=== PATIENT | male | born 1990 | race Two or more races ===

== ENCOUNTER → 2017-12-09 | Emergency (ER) | payer OTHER ==
[~2017-12-09] VITALS: Ht 177.8 cm; Wt 145.6 kg
[~2017-12-09] MED LIST: IV NS 0.9% 1,000 ML BAG IV ONE
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
[2017-12-09 14:43] LABS: CALCIUM, SERUM 8.8 mg/dL (8.5-10.1); CREATININE 0.9 mg/dL (0.6-1.3); POTASSIUM 3.9 mmol/L (3.5-5.1)
[2017-12-09 14:58] VITALS: BP 119/63
== END | disposition home or self-care (01) ==
LOC: ER 14:02
DX: R68.2 Dry mouth, unspecified (principal); I10 Essential (primary) hypertension; R45.86 Emotional lability
CPT/HCPCS: 36415; 80048; 99284; A4606; J7030; Z7610

== ENCOUNTER 2019-03-15 04:49 | Emergency (ER) | payer OTHER ==
[~2019-03-15] VITALS: Ht 167.6 cm; Wt 151.0 kg
[2019-03-15] MEDS ORDERED: IV NS 0.9% 1,000 ML IV PRN ×2 (05:30)
[2019-03-15] MEDS ORDERED: ONDANSETRON HCL/PF 4 MG/2 ML VIAL IV ONE (05:30)
[2019-03-15] MEDS ORDERED: ONDANSETRON HCL/PF 4 MG/2 ML VIAL ONE (05:30)
--- NOTE | 2019-03-15 05:33 | NUR ---
PATIENT CAME INTO ER BED 1 WITH C/O "I HAVE BEEN SHITTING MYSELF FOR 2 DAYS". PATIENT STATES THAT HE HAD BAD THAI FOOD AND HAS HAD WATERY DIARRHEA EVERSINCE. DID NOT TRAVEL OUT OF COUNTRY RECENTLY. PATIENT NOTES BLOOD IN STOOL. AAOX4. NO SOB. BREATHING EVENLY AND UNLABORED. WILL CONTINUE TO MONITOR ACCORDINGLY.
[2019-03-15 05:49] LABS: CALCIUM, SERUM 9.3 mg/dL (8.5-10.1); CREATININE 1.1 mg/dL (0.6-1.3); POTASSIUM 3.9 mmol/L (3.5-5.1)
[2019-03-15] MEDS ORDERED: KETOROLAC TROMETHAMINE 15 MG/ML VIAL ONE (05:54)
[2019-03-15] MEDS ORDERED: KETOROLAC TROMETHAMINE INJ 30 MG/ML VIAL IV ONE (06:00)
--- NOTE | 2019-03-15 06:56 | NUR ---
IV removed. Catheter intact and site benign. Pressure and 4x4 applied to site. No bleeding noted. Patient discharged to home in stable condition. Written and verbal after care instructions given. Patient verbalizes understanding of instruction. Prescriptions given and explained to patient.
[2019-03-15 06:57] VITALS: BP 129/77
== END 2019-03-15 06:57 | disposition home or self-care (01) ==
LOC: ER 04:52
DX: K52.9 Noninfective gastroenteritis and colitis, unspecified (principal); I10 Essential (primary) hypertension; E11.9 Type 2 diabetes mellitus without complications
CPT/HCPCS: 36415; 80048; 96361; 96374; 96375; 99283; J1885; J2405; J7030

== ENCOUNTER 2019-06-18 11:30 | Emergency (ER) | payer OTHER ==
[~2019-06-18] VITALS: Ht 177.8 cm; Wt 145.1 kg
[2019-06-18 11:43] VITALS: BP 150/77
--- NOTE | 2019-06-18 12:12 | NUR ---
Patient awake alert non distres noted able to ambulated urine obtined and send to lab
[2019-06-18 12:15] LABS: APPEARANCE,URINE Clear (CLEAR); BILIRUBIN,URINE Negative (NEGATIVE); BLOOD, URINE Trace-intact Ery/uL (NEGATIVE); COLOR,URINE Yellow (YELLOW); KETONES,URINE Negative (NEGATIVE); LEUKOCYTE ESTERASE ,URINE Trace (NEGATIVE); NITRITE, URINE Negative (NEGATIVE); PROTEIN,URINE Trace mg/dl (NEGATIVE); UGLUCOSE Negative (NEGATIVE); UROBILINOGEN,URINE 0.2 EU/dL (0.2)
[2019-06-18 12:21] LABS: BACTERIA,URINE Rare /HPF (None Seen); SQUAMOUS EPITHELIAL CELL,UR Rare /HPF (None Seen); WBC,URINE 0-2 /HPF (0-3)
--- NOTE | 2019-06-18 13:01 | NUR ---
Patient discharged to home in stable condition. Written and verbal after care instructions given. Patient verbalizes understanding of instruction.
== END 2019-06-18 13:03 | disposition home or self-care (01) ==
LOC: ER 11:30
DX: R31.29 Other microscopic hematuria (principal); I10 Essential (primary) hypertension; F17.200 Nicotine dependence, unspecified, uncomplicated
CPT/HCPCS: 81000-TC; 87086-TC

== ENCOUNTER 2019-09-25 23:10 | Emergency (ER) | payer OTHER ==
[~2019-09-25] VITALS: Ht 177.8 cm; Wt 157.4 kg
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
--- NOTE | 2019-09-25 23:27 | NUR ---
LAB AT BEDSIDE FOR BLOOD DRAW
[2019-09-25 23:31] LABS: BASOPHILS # (AUTO) 0.1 /CMM (0.0-0.2); BASOPHILS % (AUTO) 0.6 % (0.0-2.0); EOSINOPHILS % (AUTO) 2.7 % (0.0-6.0); HEMATOCRIT 40 % (39-51); HEMOGLOBIN 12.8 g/dL (13.5-17.5); LYMPHOCYTES # (AUTO) 3.1 /CMM (0.8-4.8); LYMPHOCYTES % (AUTO) 21.8 % (20.0-44.0); MEAN CORPUSCULAR HGB CONC 32 g/dl (31.0-36.0); MEAN CORPUSCULAR VOLUME 82 fL (80-96); MONOCYTES # (AUTO) 1.3 /CMM (0.1-1.30); MONOCYTES % (AUTO) 9.1 % (2.0-12.0); NEUTROPHILS # (AUTO) 9.3 /CMM (1.8-8.9); NEUTROPHILS % (AUTO) 65.8 % (43.0-81.0); PLATELET COUNT (AUTO) 294 /CMM (150-450); RED BLOOD CELL COUNT(AUTO) 4.92 MIL/uL (4.5-6.0); WHITE BLOOD COUNT (AUTO) 14.1 K/uL (4.3-11.0)
--- NOTE | 2019-09-25 23:35 | NUR ---
[employer] LEFT, SITTER WITHIN LINE OF SIGHT.
[2019-09-25 23:39] LABS: CALCIUM, SERUM 9.2 mg/dL (8.5-10.1); CARBON DIOXIDE 33 mmol/L (21-32); CHLORIDE 103 mmol/L (98-107); GLUCOSE 94 mg/dL (74-106); POTASSIUM 4.3 mmol/L (3.5-5.1); SODIUM SERUM 139 mmol/L (136-145); UREA NITROGEN, BLOOD 18 mg/dL (7-18)
[2019-09-25 23:44] LABS: ALANINE AMINOTRANSFERASE 21 U/L (12-78); ALBUMIN 3.4 g/dL (3.4-5.0); ALKALINE PHOSPHATASE 104 U/L (46-116); ASPARTATE AMINOTRANSFERASE 14 U/L (15-37); BILIRUBIN,TOTAL 0.2 mg/dL (0.2-1.0)
[2019-09-25 23:45] LABS: ACETAMINOPHEN < 2 ug/ml (10-30); ALCOHOL, BLOOD < 3 mg/dL (0-0); SALICYLATE 2.4 mg/dL (2.8-20.0)
--- NOTE | 2019-09-26 00:08 | NUR ---
URINE COLLECTED. SENT TO LAB
[2019-09-26 00:13] LABS: APPEARANCE,URINE Clear (CLEAR); BILIRUBIN,URINE Negative (NEGATIVE); BLOOD, URINE Trace-intact Ery/uL (NEGATIVE); COLOR,URINE Yellow (YELLOW); KETONES,URINE Negative (NEGATIVE); LEUKOCYTE ESTERASE ,URINE Negative (NEGATIVE); NITRITE, URINE Negative (NEGATIVE); PH,URINE 6.5 (5.0-8.0); PROTEIN,URINE Negative (NEGATIVE); UGLUCOSE Negative (NEGATIVE); UROBILINOGEN,URINE 0.2 EU/dL (0.2)
[2019-09-26 00:24] LABS: BACTERIA,URINE None seen /HPF (None Seen); SQUAMOUS EPITHELIAL CELL,UR Few /HPF (None Seen); WBC,URINE NONE SEEN /HPF (0-3)
--- NOTE | 2019-09-26 00:59 | NUR ---
PT STATES " I DONT WANT TO KILL MYSELF, I WAS JUST FRUSTRATED THAT I COULD NOT FINISH WHILE WATCHING PORN, I DONT PLAN ON OVERDOSING ON MEDICATION"
--- NOTE | 2019-09-26 05:25 | NUR ---
pt cleared for discharge per dr. lyman. Patient discharged to home in stable condition. Written and verbal after care instructions given. Patient verbalizes understanding of instruction. pt ambulatory with a steady gait
[2019-09-26 05:41] VITALS: BP 128/78
== END 2019-09-26 05:25 | disposition home or self-care (01) ==
LOC: ER 23:13
DX: R45.851 Suicidal ideations (principal); I10 Essential (primary) hypertension; F17.200 Nicotine dependence, unspecified, uncomplicated
CPT/HCPCS: 36415; 80048; 80076; 80305; 80307; 80329; 81001; 85025; 99285; G0480; 81000-TC

== ENCOUNTER 2019-10-08 16:44 | Emergency (ER) | payer OTHER ==
[~2019-10-08] VITALS: Ht 172.7 cm; Wt 113.4 kg
[2019-10-08 16:56] VITALS: BP 162/98
--- NOTE | 2019-10-08 17:15 | NUR ---
refused to remain in his bed, saying "i'm going home" and proceeded to walk towards the door.
== END 2019-10-08 17:15 | disposition left against medical advice (07) ==
LOC: ER 16:47
DX: Z53.21 Procedure and treatment not carried out due to patient leaving prior to being seen by health care provider (principal)

== ENCOUNTER 2020-02-08 00:18 | Emergency (ER) | payer OTHER ==
[~2020-02-08] VITALS: Ht 172.7 cm; Wt 113.4 kg
--- NOTE | 2020-02-08 00:21 | NUR ---
PT AAOX4. BIBRA39 WITH SMART TEAM FROM HOME FOR SI "CUT THROAT, OD ON MEDs" PT PLACED IN BED 14 ON WAREHOUSE LEAD AND PULSE OX. PT PLACED IN GOWN, BELONIGNS PLACED IN LOCKER. SITTER AT BEDSIDE. PT ON 5150 FOR DTS. WILL CONTINUE TO MONITOR.
[2020-02-08 01:02] LABS: BASOPHILS # (AUTO) 0.1 /CMM (0.0-0.2); BASOPHILS % (AUTO) 0.7 % (0.0-2.0); EOSINOPHILS % (AUTO) 2.4 % (0.0-6.0); HEMATOCRIT 40 % (39-51); HEMOGLOBIN 12.5 g/dL (13.5-17.5); LYMPHOCYTES # (AUTO) 3.4 /CMM (0.8-4.8); LYMPHOCYTES % (AUTO) 25.4 % (20.0-44.0); MEAN CORPUSCULAR HGB CONC 31 g/dl (31.0-36.0); MEAN CORPUSCULAR VOLUME 84 fL (80-96); MONOCYTES # (AUTO) 1.4 /CMM (0.1-1.30); MONOCYTES % (AUTO) 10.7 % (2.0-12.0); NEUTROPHILS # (AUTO) 8.1 /CMM (1.8-8.9); NEUTROPHILS % (AUTO) 60.8 % (43.0-81.0); PLATELET COUNT (AUTO) 278 /CMM (150-450); RED BLOOD CELL COUNT(AUTO) 4.78 MIL/uL (4.5-6.0); WHITE BLOOD COUNT (AUTO) 13.4 K/uL (4.3-11.0)
[2020-02-08 01:19] LABS: BILIRUBIN,URINE SMALL (NEGATIVE); BLOOD, URINE Trace-intact Ery/uL (NEGATIVE); COLOR,URINE YELLOW (YELLOW); LEUKOCYTE ESTERASE ,URINE Negative (NEGATIVE); NITRITE, URINE Negative (NEGATIVE); PH,URINE 6.5 (5.0-8.0); PROTEIN,URINE 100 mg/dl (NEGATIVE); UGLUCOSE Negative (NEGATIVE)
[2020-02-08 01:49] LABS: CALCIUM, SERUM 9.2 mg/dL (8.5-10.1); CARBON DIOXIDE 30 mmol/L (21-32); CHLORIDE 101 mmol/L (98-107); CREATININE 0.8 mg/dL (0.6-1.3); GLUCOSE 98 mg/dL (74-106); POTASSIUM 4.7 mmol/L (3.5-5.1); SODIUM SERUM 140 mmol/L (136-145); UREA NITROGEN, BLOOD 13 mg/dL (7-18)
[2020-02-08 01:55] LABS: ACETAMINOPHEN 3 ug/ml (10-30); ALANINE AMINOTRANSFERASE 35 U/L (12-78); ALBUMIN 3.3 g/dL (3.4-5.0); ALCOHOL, BLOOD < 3 mg/dL (0-0); ALKALINE PHOSPHATASE 85 U/L (46-116); ASPARTATE AMINOTRANSFERASE 17 U/L (15-37); BILIRUBIN,DIRECT 0.1 mg/dL (0.0-0.2); BILIRUBIN,TOTAL 0.3 mg/dL (0.2-1.0); TOTAL PROTEIN, SERUM 7.7 g/dL (6.4-8.2)
[2020-02-08 02:14] LABS: BACTERIA,URINE 2+ /HPF (None Seen); SQUAMOUS EPITHELIAL CELL,UR Moderate /HPF (None Seen); WBC,URINE 81-100 /HPF (0-3)
[2020-02-08 02:15] LABS: MUCUS,URINE Many /LPF (None Seen); URINE AMORPHOUS URATE Many /HPF (None Seen)
--- NOTE | 2020-02-08 04:26 | NUR ---
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
--- NOTE | 2020-02-08 05:44 | NUR ---
Patient is resting comfortably in bed. Easily aroused. VSS.
--- NOTE | 2020-02-08 10:59 | NUR ---
[facility] [phone]
--- NOTE | 2020-02-08 11:17 | NUR ---
Patient is a 29 year-old male. Patient was placed on a 5150 hold by [employer] and [facility] SMART Team. Patient is alert and oriented x4. Patient was receptive to speaking with this SW. Patient made appropriate eye contact. Patients speech was clear, linear, and soft. Patient informed this SW that he said the wrong things and now wants to go home. Patient denied SI and HI. Denies auditory and visual hallucinations. Per 5150 hold, patient reported that he was having audiory hallucinations telling him to cut his throat and wrist with a knife and overdose on his psychiatric medications. 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 Duval, ED physician.
--- NOTE | 2020-02-08 11:23 | NUR ---
BRENDA spoke with Dr. Duval regarding patient currently denying SI, HI, auditory and visual hallucinations. SW discussed with Dr. Duval in calling [employer]nament[employer]worker to assess patient. Dr. Duval in agreement.
--- NOTE | 2020-02-08 11:24 | NUR ---
BRENDA called [employer], [facility] clinician infection control nurse. Per Samantha, on her way not ETA provided. SW remains available for all needs regarding this patient.
--- NOTE | 2020-02-08 14:22 | NUR ---
cleared by the PET TEAM: Plan Preliminary treatment plan Problem patient presents with frustration due to high blood pressure and high blood sugar. patient called [employer] falsely due to frustration and needing to get to the hospital faster. patient reports recent hospitalization at [facility] but reports no suicidal thoughts or behavior presently. patient denies any harm to self or plan present upon evaluation by clinician. Interventions patient will be discharge and the 5150 by [employer] broken. patient created a safety plan with clinican statign he will contact his psychiatrist Dr. Angelo Hooper and therapist Mayra of [facility]. patient also include in safety plan to listen to music and take walk when he gets frustrated next time. Goal To reduce frustration and use positive coping strategies. Referrals for treatment If not admitted patient is referred to his treating psychiatrist and therapist Dr. Angelo Hooper and Mayra of [facility]. Gerald GARCIAS 2019 [id number] 26 Page
--- NOTE | 2020-02-08 14:23 | NUR ---
cleared by the psych- see notes
--- NOTE | 2020-02-08 14:23 | NUR ---
dc with his mother- verbalized understanding of care.
[2020-02-08 14:24] VITALS: BP 135/78
== END 2020-02-08 14:25 | disposition home or self-care (01) ==
LOC: ER 00:19
DX: R45.851 Suicidal ideations (principal); I10 Essential (primary) hypertension; R07.9 Chest pain, unspecified; R05 Cough; Z20.828 Contact with and (suspected) exposure to other viral communicable diseases; F32.9 Major depressive disorder, single episode, unspecified
CPT/HCPCS: 36415; 71045; 80048; 80076; 80299; 80307; 80320; 81001; 85025; 87086; 87426; 93005; 99285; C9803; G0480; J7030

== ENCOUNTER 2020-02-13 01:28 | Emergency (ER) | payer OTHER ==
[~2020-02-13] VITALS: Ht 172.7 cm; Wt 113.4 kg
[2020-02-13 01:33] VITALS: BP 136/81
--- NOTE | 2020-02-13 02:28 | NUR ---
TECH AT BEDSIDE FOR EKG
[2020-02-13] MEDS ORDERED: LORAZEPAM 1 MG TABLET ONE (02:48)
--- NOTE | 2020-02-13 02:49 | NUR ---
Patient discharged to home in stable condition. Written and verbal after care instructions given. Patient verbalizes understanding of instruction.
[2020-02-13] MEDS ORDERED: LORAZEPAM 1 MG TABLET PO ONE (03:00)
== END 2020-02-13 05:11 | disposition home or self-care (01) ==
LOC: ER 01:33
DX: F41.9 Anxiety disorder, unspecified (principal); R07.89 Other chest pain; I10 Essential (primary) hypertension; F32.9 Major depressive disorder, single episode, unspecified; F17.200 Nicotine dependence, unspecified, uncomplicated

== ENCOUNTER 2020-06-30 01:01 | Emergency (ER) | payer OTHER ==
[~2020-06-30] VITALS: Ht 177.8 cm; Wt 165.6 kg
[2020-06-30] MEDS ORDERED: KETOROLAC TROMETHAMINE INJ 30 MG/ML VIAL ONE (01:38)
[2020-06-30] MEDS ORDERED: ONDANSETRON HCL/PF 4 MG/2 ML VIAL ONE (01:38)
[2020-06-30] MEDS: IV NS 0.9% 500 ML BAG IV ONE (01:44)
[2020-06-30] MEDS: KETOROLAC TROMETHAMINE INJ 30 MG/ML VIAL IV ONE (01:44)
[2020-06-30] MEDS: ONDANSETRON HCL/PF 4 MG/2 ML VIAL IVP ONE (01:44)
--- NOTE | 2020-06-30 01:46 | NUR ---
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 PATIENT STATES THAT HE HAS HX OF KIDNEY STONES AND RECURRING UTI. PATIENT IS AAOX4. NO SOB. BREATHING EVENLY AND UNLABORED ON ROOM AIR. PT'S URINE COLLECTED AND SENT TO THE LAB. CONNECTED TO THE MONITOR.
--- NOTE | 2020-06-30 01:46 | NUR ---
Cesar chaves in EDM - 06/30/20 at 0147 by BONIFACIO PT TO ER BED 11 C/O LEFT UPPER ABDOMINAL STINGING PAIN W/ UPPER PELVIC PAIN
[2020-06-30 01:51] LABS: BASOPHILS # (AUTO) 0.1 /CMM (0.0-0.2); BASOPHILS % (AUTO) 0.9 % (0.0-2.0); EOSINOPHILS % (AUTO) 4.9 % (0.0-6.0); HEMATOCRIT 37 % (39-51); HEMOGLOBIN 11.9 g/dL (13.5-17.5); LYMPHOCYTES # (AUTO) 3.6 /CMM (0.8-4.8); LYMPHOCYTES % (AUTO) 25.6 % (20.0-44.0); MEAN CORPUSCULAR HGB CONC 32 g/dl (31.0-36.0); MEAN CORPUSCULAR VOLUME 83 fL (80-96); MONOCYTES # (AUTO) 1.5 /CMM (0.1-1.30); MONOCYTES % (AUTO) 10.9 % (2.0-12.0); NEUTROPHILS # (AUTO) 8.1 /CMM (1.8-8.9); NEUTROPHILS % (AUTO) 57.7 % (43.0-81.0); PLATELET COUNT (AUTO) 277 /CMM (150-450); RED BLOOD CELL COUNT(AUTO) 4.46 MIL/uL (4.5-6.0); WHITE BLOOD COUNT (AUTO) 14.1 K/uL (4.3-11.0)
[2020-06-30 01:51] LABS: BILIRUBIN,URINE NEGATIVE (NEGATIVE); COLOR,URINE YELLOW (YELLOW); LEUKOCYTE ESTERASE ,URINE MODERATE (NEGATIVE); NITRITE, URINE NEGATIVE (NEGATIVE); PROTEIN,URINE 30 mg/dl (NEGATIVE); UGLUCOSE NEGATIVE (NEGATIVE); UROBILINOGEN,URINE 0.2 EU/dL (0.2)
[2020-06-30 01:57] LABS: BACTERIA,URINE Many /HPF (None Seen); SQUAMOUS EPITHELIAL CELL,UR Few /HPF (None Seen); WBC,URINE 51-80 /HPF (0-3)
[2020-06-30 02:01] LABS: CALCIUM, SERUM 8.2 mg/dL (8.5-10.1); CREATININE 0.9 mg/dL (0.6-1.3); POTASSIUM 3.9 mmol/L (3.5-5.1)
[2020-06-30] MEDS ORDERED: CIPROFLOXACIN HCL 500 MG TABLET ONE (02:47)
[2020-06-30] MEDS ORDERED: CIPR500T5 PO (02:48)
[2020-06-30] MEDS ORDERED: IBUP-1957 PO (02:48)
[2020-06-30] MEDS: CIPROFLOXACIN HCL 500 MG TABLET PO ONE (02:50)
[2020-06-30 02:58] VITALS: BP 128/79
--- NOTE | 2020-06-30 02:58 | NUR ---
IV removed. Catheter intact and site benign. Pressure and 4x4 applied to site. No bleeding noted.
--- NOTE | 2020-06-30 02:58 | NUR ---
Patient discharged to home in stable condition. Written and verbal after care instructions given. Patient verbalizes understanding of instruction.
== END 2020-06-30 02:58 | disposition home or self-care (01) ==
LOC: ER 01:01
DX: I88.0 Nonspecific mesenteric lymphadenitis (principal); N39.0 Urinary tract infection, site not specified; I10 Essential (primary) hypertension; F32.9 Major depressive disorder, single episode, unspecified; F17.200 Nicotine dependence, unspecified, uncomplicated; E66.01 Morbid (severe) obesity due to excess calories; Z68.43 Body mass index [BMI] 50.0-59.9, adult; Z79.899 Other long term (current) drug therapy; Z87.442 Personal history of urinary calculi
CPT/HCPCS: 36415; 74176; 80048; 81001; 85025; 87086; 96374; 96375; 99284; J1885; J2405

== ENCOUNTER 2020-08-26 01:48 | Emergency (ER) | payer OTHER ==
[~2020-08-26] VITALS: Ht 177.8 cm; Wt 165.6 kg
[~2020-08-26 01:48] MED LIST changes: +CIPR500T5 PO; +IBUP-1957 PO; -IV NS 0.9% 1,000 ML BAG IV ONE
[2020-08-26 01:50] VITALS: BP 134/67
[2020-08-26 02:22] LABS: BILIRUBIN,URINE MODERATE (NEGATIVE); COLOR,URINE RED (YELLOW); LEUKOCYTE ESTERASE ,URINE Negative (NEGATIVE); NITRITE, URINE Positive (NEGATIVE); PROTEIN,URINE >=300 mg/dl (NEGATIVE); UGLUCOSE Negative (NEGATIVE)
[2020-08-26 02:34] LABS: MUCUS,URINE Rare /LPF (None Seen); RBC,URINE 81-100 /HPF (0-2); SQUAMOUS EPITHELIAL CELL,UR None Seen /HPF (None Seen); WBC,URINE 0-2 /HPF (0-3)
[2020-08-26 02:35] LABS: BACTERIA,URINE Rare /HPF (None Seen)
[2020-08-26] MEDS ORDERED: CIPR500T5 PO (02:44)
[2020-08-26] MEDS ORDERED: CIPROFLOXACIN HCL 500 MG TABLET ONE (02:44)
[2020-08-26] MEDS: CIPROFLOXACIN HCL 500 MG TABLET PO ONE (02:45)
--- NOTE | 2020-08-26 02:50 | NUR ---
Patient discharged to home in stable condition. Written and verbal after care instructions given. Patient verbalizes understanding of instruction. Pt refuse to sign aci. pt requesting norco rx. er md made aware with no rx given.
== END 2020-08-26 03:20 | disposition home or self-care (01) ==
LOC: ER 01:52
DX: N39.0 Urinary tract infection, site not specified (principal); I10 Essential (primary) hypertension; F32.9 Major depressive disorder, single episode, unspecified; F17.200 Nicotine dependence, unspecified, uncomplicated
CPT/HCPCS: 81001; 87086-TC

== ENCOUNTER 2021-07-12 19:53 | Emergency (ER) | payer OTHER ==
[~2021-07-12] VITALS: Ht 177.8 cm; Wt 159.2 kg
--- NOTE | 2021-07-12 20:40 | NUR ---
BIBS C/O DIFFUSED STOMACH PAIN X4DAYS WITH DIARRHEA X3DAYS. PT A/OX4. TOLERATING R/A WELL WITH NO SOB. CONNECTED PT TO POX AND MONITOR.
[2021-07-12 20:41] LABS: BASOPHILS # (AUTO) 0.1 K/uL (0.0-0.2); BASOPHILS % (AUTO) 0.7 % (0.0-2.0); EOSINOPHILS % (AUTO) 2.2 % (0.0-6.0); HEMATOCRIT 37 % (39-51); HEMOGLOBIN 11.7 g/dL (13.5-17.5); LYMPHOCYTES # (AUTO) 3.2 K/uL (0.8-4.8); LYMPHOCYTES % (AUTO) 22.6 % (20.0-44.0); MEAN CORPUSCULAR HGB CONC 32 g/dl (31.0-36.0); MEAN CORPUSCULAR VOLUME 81 fL (80-96); MONOCYTES # (AUTO) 1.5 K/uL (0.1-1.30); MONOCYTES % (AUTO) 10.4 % (2.0-12.0); NEUTROPHILS % (AUTO) 64.1 % (43.0-81.0); PLATELET COUNT (AUTO) 263 K/uL (150-450); RED BLOOD CELL COUNT(AUTO) 4.58 MIL/uL (4.5-6.0)
--- NOTE | 2021-07-12 20:54 | NUR ---
PT TAKEN FOR CT SCAN
[2021-07-12 21:00] LABS: ALBUMIN 3.1 g/dL (3.4-5.0); BILIRUBIN,TOTAL 0.1 mg/dL (0.2-1.0); CALCIUM, SERUM 8.6 mg/dL (8.5-10.1); CREATININE 0.8 mg/dL (0.6-1.3); POTASSIUM 3.9 mmol/L (3.5-5.1); TOTAL PROTEIN, SERUM 7.4 g/dL (6.4-8.2)
--- NOTE | 2021-07-12 21:02 | NUR ---
PT RETURNED TO ER BED [address]
[2021-07-12 21:16] LABS: BILIRUBIN,URINE SMALL (NEGATIVE); COLOR,URINE YELLOW (YELLOW); NITRITE, URINE NEGATIVE (NEGATIVE); PROTEIN,URINE NEGATIVE (NEGATIVE); UGLUCOSE NEGATIVE (NEGATIVE); UROBILINOGEN,URINE 0.2 EU/dL (0.2)
[2021-07-12 21:28] LABS: LEUKOCYTE ESTERASE ,URINE 2+ (NEGATIVE)
[2021-07-12 21:29] LABS: BACTERIA,URINE 2+ /HPF (None Seen); SQUAMOUS EPITHELIAL CELL,UR Few /HPF (None Seen); WBC,URINE 51-80 /HPF (0-3)
--- NOTE | 2021-07-12 21:46 | NUR ---
Cesar chaves in [facility] - 07/12/21 at 2147 by DEISI [phone]
[2021-07-12] MEDS ORDERED: CIPR-262 PO (21:52)
[2021-07-12] MEDS ORDERED: IBUP-1955 PO (21:52)
[2021-07-12] MEDS ORDERED: LIDOCAINE /MPF 1% VIAL 5 ML VIAL ONE (21:57)
[2021-07-12] MEDS ORDERED: CEFTRIAXONE 1 G VIAL ONE (21:57)
[2021-07-12] MEDS ORDERED: KETOROLAC TROMETHAMINE INJ 30 MG/ML VIAL ONE (21:57)
[2021-07-12] MEDS ORDERED: CEFTRIAXONE 1 G VIAL IM ONE (22:00)
[2021-07-12] MEDS ORDERED: KETOROLAC TROMETHAMINE INJ 60 MG/2 ML VIAL IM ONE (22:00)
--- NOTE | 2021-07-12 22:10 | NUR ---
Patient discharged to home in stable condition. Written and verbal after care instructions given. Patient verbalizes understanding of instruction. PT ambulatory with a steady gait
[2021-07-12 23:11] VITALS: BP 121/65
== END 2021-07-12 22:10 | disposition home or self-care (01) ==
LOC: ER 20:00
DX: N12 Tubulo-interstitial nephritis, not specified as acute or chronic (principal); I10 Essential (primary) hypertension; F32.A Depression, unspecified; Z88.8 Allergy status to other drugs, medicaments and biological substances; F17.200 Nicotine dependence, unspecified, uncomplicated; Z79.899 Other long term (current) drug therapy
CPT/HCPCS: 36415; 74176; 80048; 80076; 81001; 83605; 83690; 85025; 87086; 96372 ×2; 99284; J0696; J1885; J3490

== ENCOUNTER 2024-06-22 19:20 | Emergency (ER) | payer OTHER ==
[~2024-06-22] VITALS: Ht 177.8 cm; Wt 159.7 kg
[~2024-06-22 19:20] MED LIST changes: +CIPR-262 PO; +IBUP-1955 PO
[2024-06-22 20:16] LABS: BASOPHILS # (AUTO) 0.1 K/uL (0.0-0.2); BASOPHILS % (AUTO) 0.7 % (0.0-2.0); EOSINOPHILS # (AUTO) 0.3 K/uL (0.0-0.7); EOSINOPHILS % (AUTO) 2.3 % (0.0-6.0); HEMATOCRIT 36 % (39-51); HEMOGLOBIN 11.6 g/dL (13.5-17.5); LYMPHOCYTES # (AUTO) 3.3 K/uL (0.8-4.8); MEAN CORPUSCULAR HEMOGLOBIN 25 PG (26.0-33.0); MEAN CORPUSCULAR HGB CONC 33 g/dl (31.0-36.0); MEAN CORPUSCULAR VOLUME 78 fL (80-96); MONOCYTES # (AUTO) 1.1 K/uL (0.1-1.30); PLATELET COUNT (AUTO) 245 K/uL (150-450); RED BLOOD CELL COUNT(AUTO) 4.59 MIL/uL (4.5-6.0); RED CELL DISTRIBUTION WIDTH 16.7 % (11.5-15.0); WHITE BLOOD COUNT (AUTO) 11.7 K/uL (4.3-11.0)
[2024-06-22 20:25] LABS: CARBON DIOXIDE 29 mmol/L (21-32); CHLORIDE 106 mmol/L (98-107); GLUCOSE 112 mg/dL (74-106); SODIUM SERUM 139 mmol/L (136-145); UREA NITROGEN, BLOOD 12 mg/dL (7-18)
[2024-06-22 20:26] LABS: APPEARANCE,URINE CLOUDY (CLEAR); BILIRUBIN,URINE Negative (NEGATIVE); BLOOD, URINE Negative Ery/uL (NEGATIVE); COLOR,URINE YELLOW (YELLOW); KETONES,URINE Trace mg/dL (NEGATIVE); LEUKOCYTE ESTERASE ,URINE Small (NEGATIVE); PROTEIN,URINE 30 mg/dl (NEGATIVE); UGLUCOSE Negative (NEGATIVE); UROBILINOGEN,URINE 0.2 EU/dL (0.2)
[2024-06-22 20:28] LABS: NITRITE, URINE NEGATIVE (NEGATIVE)
[2024-06-22 20:31] LABS: ALANINE AMINOTRANSFERASE 38 U/L (12-78); ALBUMIN 3.2 g/dL (3.4-5.0); ALCOHOL, BLOOD < 3 mg/dL (0-10); ALKALINE PHOSPHATASE 81 U/L (46-116); ASPARTATE AMINOTRANSFERASE 22 U/L (15-37); BILIRUBIN,TOTAL 0.2 mg/dL (0.2-1.0); SALICYLATE 3.8 mg/dL (2.8-20.0); TOTAL PROTEIN, SERUM 7.3 g/dL (6.4-8.2)
[2024-06-22 20:34] LABS: AMPHETAMINE, URINE NEGATIVE (NEGATIVE); BARBITURATE, URINE NEGATIVE (NEGATIVE); BENZODIAZEPINE, URINE NEGATIVE (NEGATIVE); CANNABINOID, URINE NEGATIVE (NEGATIVE); COCCAINE, URINE NEGATIVE (NEGATIVE); OPIATE, URINE NEGATIVE (NEGATIVE); PHENCYCLIDINE SCREEN,URINE NEGATIVE (NEGATIVE)
[2024-06-22 20:36] LABS: ACETAMINOPHEN 0 ug/ml (10-30)
[2024-06-22 21:48] LABS: ADD URINE CULTURE YES; BACTERIA,URINE 2+ /HPF (None Seen); RBC,URINE 0-2 /HPF (0-2)
[2024-06-22 22:50] VITALS: BP 138/70; TEMP 98.1; O2SAT 98
== END 2024-06-22 22:50 | disposition home or self-care (01) ==
LOC: ER 19:24
DX: R45.851 Suicidal ideations (principal); F17.200 Nicotine dependence, unspecified, uncomplicated; F31.9 Bipolar disorder, unspecified; I10 Essential (primary) hypertension; Z79.1 Long term (current) use of non-steroidal anti-inflammatories (NSAID); Z20.822 Contact with and (suspected) exposure to COVID-19; Z79.899 Other long term (current) drug therapy
CPT/HCPCS: 36415; 80048-TC; 80076-TC; 81001; 85025-TC; 87086-TC; G0480